=== PATIENT | male | born 1970 | race Two or more races ===

== ENCOUNTER 2017-07-02 09:42 | Emergency (ER) | payer OTHER ==
[~2017-07-02] VITALS: Ht 175.3 cm; Wt 90.3 kg
[2017-07-02 09:46] VITALS: Ht 175.3 cm; Wt 90.3 kg
[2017-07-02 11:31] VITALS: BP 133/74
== END 2017-07-02 11:31 | disposition home or self-care (01) ==
LOC: ED 09:42
DX: S86.911A Strain of unspecified muscle(s) and tendon(s) at lower leg level, right leg, initial encounter (principal); X58.XXXA Exposure to other specified factors, initial encounter; Y93.02 Activity, running; Y92.89 Other specified places as the place of occurrence of the external cause; Y99.8 Other external cause status
CPT/HCPCS: Q0092

== ENCOUNTER 2017-12-27 13:56 | Emergency (ER) | payer OTHER ==
[~2017-12-27] VITALS: Ht 175.3 cm; Wt 87.1 kg
[2017-12-27 14:01] VITALS: Ht 175.3 cm; Wt 87.1 kg
[2017-12-27 16:10] VITALS: BP 110/64
== END 2017-12-27 16:11 | disposition home or self-care (01) ==
LOC: ED 13:56
DX: R19.7 Diarrhea, unspecified (principal); R10.30 Lower abdominal pain, unspecified; Z87.19 Personal history of other diseases of the digestive system; Z79.01 Long term (current) use of anticoagulants; Z98.890 Other specified postprocedural states